=== PATIENT | female | born 1935 | race Caucasian/White ===

== ENCOUNTER → 2016-04-18 | Outpatient (CLI) | payer MEDICARE, OTHER ==
[~2016-04-18] MED LIST: ALEVE 220MG220 MG PO; ASPIRIN 81M81 MG/TA2 PO; AZO-STANDARD95 MG PO; CALCIUM 600600 M2 PO; CALCIUM1 CAP PO; CENTRUM SILVER1 TAB PO; CEPHALEXIN500 M1 PO; COLACE 100100 MG/CAP PO; CRANBERRY1 CAP PO; DITROPAN 5MG TAB5 MG PO; DITROPAN XL10 MG PO; EFFEXOR XR75 MG/CAP PO; FERROUS SU325 MG/TAB PO; FISH OIL500 MG PO; FLONASEALLERGY NS; FOLIC ACID0.4 MG PO; MACROBID 1100 MG/CAP PO; MULTI VITAMINS1 TAB PO; MULTIVITAMIN FO1 CAP PO; NASONEX SPRAY17 GM NS; NATURAL HORMONE PO; NEW ENERGY1 CAP PO; NOLVADEX 1010 MG/TAB PO; NORCO 325 MG-51 TAB PO; PLAVIX 75MG TAB75 MG PO; PRAVACHOL 20MG20 MG PO; PROTONIX 40MG T40 MG PO; TAMOXIFEN CITRA20 MG PO; TOPCARE PAIN R325 MG PO; TYLENOL PM 5001 CAP PO; TYLENOL PM EXTR1 TA1 PO; VITAMIN C500 MG PO; VITAMIN D 1001000 IU PO; VITAMIN D 400400 IU PO; ZYRTEC 10MG10 MG PO
== END ==
LOC: COL.PUL 10:38
DX: R06.09 Other forms of dyspnea (principal)

== ENCOUNTER → 2016-04-28 | Outpatient (CLI) | payer MEDICARE, OTHER | LOC: COL.PUL 12:44 | DX: J45.998 Other asthma (principal) | CPT/HCPCS: J7674 ==

== ENCOUNTER → 2016-10-02 | Outpatient (CLI) | payer MEDICARE, OTHER | LOC: MC.RAD 10:31 | DX: Z12.31 Encounter for screening mammogram for malignant neoplasm of breast (principal) ==

== ENCOUNTER 2016-11-07 08:26 | Day surgery (SDC) | payer MEDICARE, OTHER ==
[~2016-11-07] VITALS: Ht 165.1 cm; Wt 75.4 kg
[~2016-11-07 08:26] MED LIST changes: -CENTRUM SILVER1 TAB PO; -CEPHALEXIN500 M1 PO; -VITAMIN C500 MG PO; -VITAMIN D 1001000 IU PO
[2016-11-07 08:54] VITALS: BP 118/79; PULSE 95; TEMP 97.7
[2016-11-07] MEDS ORDERED: CENTRUM SILVER1 TAB PO (09:17)
[2016-11-07] MEDS ORDERED: VITAMIN D 1001000 IU PO (09:17)
[2016-11-07] MEDS ORDERED: VITAMIN C500 MG PO (09:17)
[2016-11-07] MEDS ORDERED: CEPHALEXIN500 M1 PO (09:18)
[2016-11-07 10:15] VITALS: BP 132/75; PULSE 86; TEMP 97.6
[2016-11-07 10:30] VITALS: BP 124/70; PULSE 79
[2016-11-07 10:45] VITALS: BP 130/76; PULSE 76
== END 2016-11-07 11:00 | disposition home or self-care (01) ==
LOC: SDCO 08:26
DX: D12.0 Benign neoplasm of cecum (principal); D12.3 Benign neoplasm of transverse colon; K64.0 First degree hemorrhoids; E11.9 Type 2 diabetes mellitus without complications; K21.9 Gastro-esophageal reflux disease without esophagitis; M19.90 Unspecified osteoarthritis, unspecified site; Z79.01 Long term (current) use of anticoagulants; Z96.651 Presence of right artificial knee joint; Z90.710 Acquired absence of both cervix and uterus; Z90.722 Acquired absence of ovaries, bilateral; Z85.828 Personal history of other malignant neoplasm of skin; Z85.3 Personal history of malignant neoplasm of breast; Z86.73 Personal history of transient ischemic attack (TIA), and cerebral infarction without residual deficits
CPT/HCPCS: OP; J2704; J7030

== ENCOUNTER → 2017-11-02 | Outpatient (CLI) | payer MEDICARE, OTHER ==
[~2017-11-02] MED LIST changes: +CENTRUM SILVER1 TAB PO; +CEPHALEXIN500 M1 PO; +VITAMIN C500 MG PO; +VITAMIN D 1001000 IU PO
== END ==
LOC: MC.RAD 14:00
DX: Z12.31 Encounter for screening mammogram for malignant neoplasm of breast (principal)

== ENCOUNTER → 2018-11-22 | Outpatient (CLI) | payer MEDICARE, OTHER | LOC: MC.RAD 13:39 | DX: Z12.31 Encounter for screening mammogram for malignant neoplasm of breast (principal); Z85.3 Personal history of malignant neoplasm of breast ==

== ENCOUNTER 2019-09-18 07:49 | Outpatient (CLI) | payer MEDICARE, OTHER ==
[~2019-09-18] VITALS: Ht 163.8 cm; Wt 72.9 kg
[~2019-09-18 07:49] MED LIST changes: +TOPROL XL 25MG25 MG PO; +ZESTRIL2.5 MG PO
[2019-09-18] MEDS ORDERED: EFFEXOR 3737.5 MG/TA PO (08:17)
[2019-09-18] MEDS ORDERED: ZEBETA 5MG5 MG PO (08:18)
[2019-09-18] MEDS ORDERED: CRESTOR20 MG PO (08:19)
[2019-09-18 09:08] VITALS: BP 120/72; PULSE 81; TEMP 98.1
[2019-09-18 09:41] VITALS: BP 121/66; PULSE 79
--- NOTE | 2019-09-18 09:45 | NUR ---
SEE ADRY FOR ALL MEDICATION ADMINISTRATION TIMES AND INTRA AND POST SEDATION ASSESSMENT
[2019-09-18] MEDS ORDERED: CEPHALEXIN500 M1 PO (09:59)
[2019-09-18 10:12] VITALS: BP 112/58; PULSE 87
[2019-09-18 10:15] VITALS: BP 113/52; PULSE 82
[2019-09-18 10:30] VITALS: BP 106/55; PULSE 76
--- NOTE | 2019-09-18 11:10 | NUR ---
Discharge instructions given to pt.pt verbalizes understanding.INT removed,cathether tip intact.Pt escorted out via wheelchair by this nurse.
== END 2019-09-18 11:28 | disposition home or self-care (01) ==
LOC: COL.CAR 07:49
DX: I48.0 Paroxysmal atrial fibrillation (principal); I42.9 Cardiomyopathy, unspecified; I10 Essential (primary) hypertension; E78.5 Hyperlipidemia, unspecified; R73.03 Prediabetes; Z90.710 Acquired absence of both cervix and uterus; Z90.11 Acquired absence of right breast and nipple; Z96.651 Presence of right artificial knee joint; Z79.02 Long term (current) use of antithrombotics/antiplatelets; Z85.3 Personal history of malignant neoplasm of breast; Z79.51 Long term (current) use of inhaled steroids
CPT/HCPCS: J0690; J2250; J3010

== ENCOUNTER → 2019-11-27 | Outpatient (CLI) | payer MEDICARE, OTHER ==
[~2019-11-27] MED LIST changes: +CRESTOR20 MG PO; +EFFEXOR 3737.5 MG/TA PO; +ZEBETA 5MG5 MG PO
== END ==
LOC: MC.RAD 10:30
DX: C50.911 Malignant neoplasm of unspecified site of right female breast (principal); Z98.890 Other specified postprocedural states; Z92.3 Personal history of irradiation; Z95.818 Presence of other cardiac implants and grafts

== ENCOUNTER → 2020-12-23 | Outpatient (CLI) | payer MEDICARE, OTHER | LOC: MC.RAD 11:03 | DX: Z12.31 Encounter for screening mammogram for malignant neoplasm of breast (principal); Z98.82 Breast implant status; Z90.12 Acquired absence of left breast and nipple ==

== ENCOUNTER 2021-08-02 18:12 | Emergency (ER) | payer MEDICARE ==
[~2021-08-02] VITALS: Ht 162.6 cm; Wt 72.7 kg
[2021-08-02 18:27] VITALS: TEMP 98.3
[2021-08-02 20:36] VITALS: BP 134/69; PULSE 74
== END 2021-08-02 20:21 | disposition home or self-care (01) ==
LOC: COL.ER 18:12
DX: S00.03XA Contusion of scalp, initial encounter (principal); S60.211A Contusion of right wrist, initial encounter; S50.02XA Contusion of left elbow, initial encounter; S60.511A Abrasion of right hand, initial encounter; W01.198A Fall on same level from slipping, tripping and stumbling with subsequent striking against other object, initial encounter; Y92.007 Garden or yard of unspecified non-institutional (private) residence as the place of occurrence of the external cause

== ENCOUNTER 2021-10-29 10:16 | Emergency (ER) | payer MEDICARE ==
[~2021-10-29] VITALS: Ht 162.6 cm; Wt 70.5 kg
[2021-10-29 10:18] VITALS: TEMP 98.7
[2021-10-29] MEDS ORDERED: PRAVACHOL 20MG20 MG PO (10:38)
[2021-10-29] MEDS ORDERED: PRISTIQ 50 MG T50 MG PO (10:38)
[2021-10-29] MEDS ORDERED: CENTRUM1 TA1 (10:40)
[2021-10-29] MEDS ORDERED: PHARMASSURE ZIN50 MG PO (10:40)
[2021-10-29] MEDS ORDERED: CRANBERRY250 MG (10:42)
[2021-10-29] MEDS ORDERED: CEPHALEXIN500 M1 (10:43)
[2021-10-29] MEDS ORDERED: VITAMIN D 400400 IU PO (10:43)
[2021-10-29 10:56] LABS: BASO # 0.1 K/mm3 (0.0-0.2); EOS % 0.6 % (0.0-4.0); GRAN # 4.8 K/mm3 (1.4-6.5); GRAN % 77.5 % (42.2-75.2); HEMATOCRIT 41.4 % (37.0-47.0); HEMOGLOBIN 13.5 g/dl (12.5-16.0); LYMPH # 0.6 K/mm3 (1.2-3.4); LYMPH % 9.2 % (20.0-51.0); MEAN CELL VOLUME 83 fl (80.0-100.0); MEAN CORPUSCULAR HEMOGLOBIN 27 pg (27-31); MEAN CORPUSCULAR HGB CONC 33 g/dl (33.0-37.0); MEAN PLATELET VOLUME 9.7 fl (7.4-10.4); MONO # 0.7 K/mm3 (0.1-0.6); MONO % 11.2 % (1.7-9.3); PLATELET COUNT 231 K/mm3 (130-400); REDCELL DISTRIBUTION WIDTH-CV 14.6 % (11.5-14.5)
[2021-10-29 11:13] LABS: COLLECTION METHOD CLEAN CATCH
[2021-10-29 11:14] LABS: ALBUMIN 2.9 gm/dL (3.4-4.8); BILIRUBIN,TOTAL 0.3 mg/dL (0.2-1.2); CALCIUM 8.3 mg/dL (8.4-10.2); CREATININE, serum 0.81 mg/dL (0.57-1.11); POTASSIUM 3.9 mmol/L (3.5-4.5)
[2021-10-29 11:19] LABS: TROPONIN-I 0.017 ng/mL (0.00-0.033)
[2021-10-29 11:21] LABS: SQUAMOUS EPITHELIAL None Seen /hpf (0-10); URINE BACTERIA None Seen /hpf (NONE SEEN); URINE RBC 0-2 /hpf (0-2)
[2021-10-29 11:22] LABS: PH 6.5 (5.0-8.5); URINE APPEARANCE Clear (CLEAR/HAZY); URINE COLOR Yellow (YELLOW)
[2021-10-29 11:23] LABS: URINE GLUCOSE Negative (NEGATIVE); URINE KETONE Negative (NEGATIVE); URINE NITRATE Negative (NEGATIVE); URINE PROTEIN(semi-quant) Negative (NEGATIVE); URINE UROBILINOGEN 0.2 E.U/dL (0.2-1.0)
[2021-10-29 11:24] LABS: URINE BLOOD TRACE-INTACT (NEGATIVE)
[2021-10-29 13:00] VITALS: BP 134/85; PULSE 86
== END 2021-10-29 13:00 | disposition home or self-care (01) ==
LOC: COL.ER 10:16
PROVIDERS: Physician Assistant
DX: N39.0 Urinary tract infection, site not specified (principal); Z86.73 Personal history of transient ischemic attack (TIA), and cerebral infarction without residual deficits; Z79.02 Long term (current) use of antithrombotics/antiplatelets

== ENCOUNTER 2021-11-03 14:43 | Observation (INO) | payer MEDICARE ==
[~2021-11-03] VITALS: Ht 165.1 cm; Wt 75.7 kg
[~2021-11-03 14:43] MED LIST changes: +CENTRUM1 TA1; +CEPHALEXIN500 M1; +CRANBERRY250 MG; +PHARMASSURE ZIN50 MG PO; +PRISTIQ 50 MG T50 MG PO
[2021-11-03 15:26] LABS: BASO % 0.5 % (0.0-2.0); EOS # 0.1 K/mm3 (0.0-0.7); EOS % 1.4 % (0.0-4.0); GRAN # 6.1 K/mm3 (1.4-6.5); GRAN % 79.6 % (42.2-75.2); HEMATOCRIT 45.6 % (37.0-47.0); HEMOGLOBIN 15.1 g/dl (12.5-16.0); LYMPH # 0.6 K/mm3 (1.2-3.4); LYMPH % 8.2 % (20.0-51.0); MEAN CELL VOLUME 81 fl (80.0-100.0); MEAN CORPUSCULAR HEMOGLOBIN 27 pg (27-31); MEAN CORPUSCULAR HGB CONC 33 g/dl (33.0-37.0); MEAN PLATELET VOLUME 9.3 fl (7.4-10.4); MONO # 0.8 K/mm3 (0.1-0.6); MONO % 9.9 % (1.7-9.3); PLATELET COUNT 301 K/mm3 (130-400); RED BLOOD COUNT 5.66 M/mm3 (4.10-5.30); REDCELL DISTRIBUTION WIDTH-CV 14.5 % (11.5-14.5)
[2021-11-03 15:35] LABS: ALANINE AMINOTRANSFERASE 55 U/L (0-55); ALKALINE PHOSPHATASE 251 U/L (40-150); ANION GAP 12 mmol/L (7-16); AST,SGOT 68 U/L (5-34); BILIRUBIN,TOTAL 0.6 mg/dL (0.2-1.2); BLOOD UREA NITROGEN 10 mg/dL (10-20); CALCIUM 8.7 mg/dL (8.4-10.2); CARBON DIOXIDE 22 mmol/L (23-31); CHLORIDE 98 mmol/L (98-107); CREATININE, serum 0.75 mg/dL (0.57-1.11); GLUCOSE 190 mg/dL (70-99); POTASSIUM 3.4 mmol/L (3.5-4.5); SODIUM 132 mmol/L (136-145); TOTAL PROTEIN 6.6 gm/dL (6.2-8.1)
[2021-11-03 15:41] LABS: TROPONIN-I < 0.010 ng/mL (0.00-0.033)
[2021-11-03 16:49] LABS: COLLECTION METHOD CLEAN CATCH
[2021-11-03 16:58] LABS: SQUAMOUS EPITHELIAL None Seen /hpf (0-10); URINE BACTERIA None Seen /hpf (NONE SEEN); URINE RBC 0-2 /hpf (0-2)
[2021-11-03 16:59] LABS: URINE APPEARANCE Clear (CLEAR/HAZY); URINE BLOOD TRACE-LYSED (NEGATIVE); URINE COLOR Yellow (YELLOW); URINE GLUCOSE Negative (NEGATIVE); URINE KETONE Negative (NEGATIVE); URINE NITRATE Negative (NEGATIVE); URINE PROTEIN(semi-quant) Negative (NEGATIVE); URINE UROBILINOGEN 0.2 E.U/dL (0.2-1.0)
[2021-11-03] MEDS ORDERED: ZOFRAN 4MG T4 MG/TAB PO (18:59)
[2021-11-03] MEDS ORDERED: PROTONIX 40MG T40 MG PO (18:59)
[2021-11-03] MEDS ORDERED: PROTONIX20 MG PO (19:34)
--- NOTE | 2021-11-03 20:07 | NUR ---
PT ARRIVES VIA CART FROM ED.
[2021-11-03 20:15] VITALS: BP 129/61; PULSE 81; TEMP 98.2
--- NOTE | 2021-11-03 20:30 | NUR ---
ADMISSION QUESTIONS COMPLETED. PT HAS IVF WITH POTASSIUM REPLACEMENT INFUSING TO LFA WITHOUT REDNESS OR SWELLING. IS ALERT AND ORIENTED X4, [place]. PT ON FALL PRECAUTIONS D/T FALL AT HOME. PT REPORTS URGENCY AND SLIGHT INCONTINENCE WHEN GETTING UP, PROVIDED PULL UP AT THIS TIME.
[2021-11-04] VITALS (9 sets, daily range): BP systolic 123–146; BP diastolic 54–71; PULSE 79–93; TEMP 97.6–99.1
--- NOTE | 2021-11-04 02:00 | NUR ---
POTASSIUM REPLACEMENT COMPLETE. IV ZOSYN INFUSING TO LFA WITHOUT PROBLEM. HAS BEEN UP TO BSC WITH ONE ASSIST AND WALKER. IS NPO. DENIES NEED FOR PAIN MEDS, NO NAUSEA AT THIS TIME.
[2021-11-04 06:12] LABS: BASO # 0.1 K/mm3 (0.0-0.2); BASO % 0.8 % (0.0-2.0); EOS # 0.3 K/mm3 (0.0-0.7); EOS % 4.2 % (0.0-4.0); GRAN # 4.5 K/mm3 (1.4-6.5); HEMATOCRIT 39.5 % (37.0-47.0); HEMOGLOBIN 13.2 g/dl (12.5-16.0); LYMPH # 0.8 K/mm3 (1.2-3.4); LYMPH % 11.9 % (20.0-51.0); MEAN CELL VOLUME 80 fl (80.0-100.0); MEAN CORPUSCULAR HEMOGLOBIN 27 pg (27-31); MEAN CORPUSCULAR HGB CONC 33 g/dl (33.0-37.0); MEAN PLATELET VOLUME 9.7 fl (7.4-10.4); MONO # 0.8 K/mm3 (0.1-0.6); MONO % 12.5 % (1.7-9.3); PLATELET COUNT 271 K/mm3 (130-400); RED BLOOD COUNT 4.94 M/mm3 (4.10-5.30); REDCELL DISTRIBUTION WIDTH-CV 14.4 % (11.5-14.5)
[2021-11-04 06:28] LABS: CALCIUM 8.1 mg/dL (8.4-10.2); CREATININE, serum 0.67 mg/dL (0.57-1.11)
--- NOTE | 2021-11-04 09:15 | NUR ---
Pt has worked with PT and is currently sitting up in the chair. Pts daughter, Mohit, is in the room with her. Dr Quach in to see pt, discussed US results and plan of care for the day. Pt advanced to clear liquid diet, tray has been ordered for her
--- NOTE | 2021-11-04 09:44 | NUR ---
Initial visit; Patient states she is having abdominal discomfort and is here for a diagnosis. came in when Manager Community was there and talked with Dora and her daughter about her symptoms. offered God's blessings to Dora and her
--- NOTE | 2021-11-04 10:48 | NUR ---
Pt doing well, she did tolerate the clear liquids without any difficulty. She is not having any complaints of pain. Morning medications given. Ambulated pt to the restroom and then back to bed.
--- NOTE | 2021-11-04 13:22 | NUR ---
Crossbow Maker met with patient and patient's daughter, Gale (ph#[phone]) to discuss discharge planning. Patient lives alone in [place] but advised Gale has been staying with her for the last week or so. Patient sees Dr. Zaidi for primary care and obtains her medications from [facility] pharmacy with no difficulties. Patient has a cane, but has been using a walker this last week. Patient is normally independent with ADLS and is still driving, however has had more difficulty this last week. Patient has DPOA-HC in EMR which designates her daughter, Gale. Patient states she plans to go home unless there are other recommendations from PT/OT. SW followed up with patient following PT/OT eval. SW advised PT/OT recommend considering home health vs post acute rehab. Patient would like to discuss this with her daughter. SW attempted to contact patient's daughter, Gale and left a message. Discharge Plan: Home Health vs Post Acute Rehab
--- NOTE | 2021-11-04 14:59 | NUR ---
Daycare Provider met with patient and patient's daughter, Gale to discuss discharge planning. DOMINIQUE and RN-TAWANNA provided MAIER form to patient who verbalized understanding and provided signature. DOMINIQUE placed form in chart and provided copy to patient. DOMINIQUE reviewed PT/OT recommendations and also explained that SNF would be private pay. Gale advised that patient has funds to private pay, however they would like to see how patient does overnight before deciding on HH vs SNF. DOMINIQUE provided Medicare.gov list of HH agencies. Gale advised they have also been in communication with [facility] for private duty services. Discharge Plan: HH vs private pay SNF
--- NOTE | 2021-11-04 15:12 | NUR ---
Assisted pt to the restroom. She was not steady on her feet, upper body moving quicker than lower extremities. Had to give a lot of instruction ambulating back to her bed. Pt speech is also slower than normal. Notified Dr Johnson. VSS 127/58, pulse 76 and accucheck 126. Daughter is present in the room
--- NOTE | 2021-11-04 16:13 | NUR ---
Pt off the floor for CT
--- NOTE | 2021-11-04 20:00 | NUR ---
PT A&O RESTING IN BED. MEDS GIVEN AND ASSESSMENT COMPLETE. BRUISING TO LT FOOT FROM FALL. VS STABLE AND TELE IN PLACE FOR AFIB. PT DENIES PN BUT COMPLAINS OF INDIGESTION. BS OF 99 NOT REQUIRING INSULIN PER SS. PT UP TO BATHROOM 1 ASSIST W WALKER AND WAS UNSTEADY. INT TO LEFT FOREARM PATENT. 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 SCDS TO BLE. NO OTHER NEEDS AT THIS TIME. CALL LIGHTWITHIN REACH.
[2021-11-05 03:42] VITALS: BP 157/76; PULSE 77; TEMP 97.9
[2021-11-05 07:34] VITALS: BP 142/64; PULSE 79; TEMP 98.4
--- NOTE | 2021-11-05 08:07 | NUR ---
Pt assessment complete. Pt is sitting up in bed eating breakfast, she is A/O x4. Neuro checks WNL. Pt reports dull ache to upper abdomen and belching after eating and drinking. Denies any N/V. Reports she is passing gas. No SOB. SCD's on bilaterally. No further needs at this time. Call light within reach.
[2021-11-05 12:30] VITALS: BP 124/70; PULSE 70; TEMP 98.1
--- NOTE | 2021-11-05 15:18 | NUR ---
Sw met with pt and daughter. Daughter requested [facility]. SW called [facility] for referral and waiting almond paste mixer back from them. DOMINIQUE went ahead and faxed over paperwork to [phone].
[2021-11-05 15:56] VITALS: BP 150/71; PULSE 84; TEMP 98.2
--- NOTE | 2021-11-05 18:28 | NUR ---
Pt had an uneventful day. She had no episodes of weakness or slurred speech. Plan to have EGD tomorrow, NPO at midnight. Resting in bed with SCD's in place. No needs at this time. Call light within reach.
[2021-11-05 19:37] VITALS: BP 143/79; PULSE 88; TEMP 98.6
--- NOTE | 2021-11-05 19:44 | NUR ---
Patient assessed at this time. Denies having pain and discomfort. Peripheral INT to left forearm flushed. Assisted to bathroom with one assist, use of gait belt, and walker. Did lose balance and needed assistance pulling up and down depend. Denies dizziness. Patient aware of plan for EGD tomorrow morning. Consent is signed and on the chart. Aware that she will be NPO after midnight, including water. Voices no questions, needs, or concerns at this time. In bed with call light within reach. High fall risk precautions in place. Bed alarm on.
[2021-11-05 23:07] VITALS: BP 128/69; PULSE 92; TEMP 97.5
[2021-11-06] VITALS (7 sets, daily range): BP systolic 117–153; BP diastolic 65–89; PULSE 66–83; TEMP 97.3–97.8
[2021-11-06 06:08] LABS: BASO % 0.5 % (0.0-2.0); EOS # 0.2 K/mm3 (0.0-0.7); EOS % 3.3 % (0.0-4.0); GRAN # 5.2 K/mm3 (1.4-6.5); GRAN % 71.5 % (42.2-75.2); HEMATOCRIT 43.2 % (37.0-47.0); LYMPH % 13.2 % (20.0-51.0); MEAN CELL VOLUME 82 fl (80.0-100.0); MEAN CORPUSCULAR HEMOGLOBIN 27 pg (27-31); MEAN CORPUSCULAR HGB CONC 32 g/dl (33.0-37.0); MEAN PLATELET VOLUME 9.8 fl (7.4-10.4); MONO # 0.8 K/mm3 (0.1-0.6); MONO % 11.1 % (1.7-9.3); PLATELET COUNT 275 K/mm3 (130-400); RED BLOOD COUNT 5.27 M/mm3 (4.10-5.30); REDCELL DISTRIBUTION WIDTH-CV 14.6 % (11.5-14.5)
--- NOTE | 2021-11-06 06:31 | NUR ---
Patient has been NPO since midnight for EGD today. Voices no questions, needs, or concerns at this time. In bed with call light within reach. Bed alarm on.
[2021-11-06 06:54] LABS: ALBUMIN 2.5 gm/dL (3.4-4.8); CALCIUM 8.3 mg/dL (8.4-10.2); CREATININE, serum 0.69 mg/dL (0.57-1.11); PHOSPHOROUS 2.6 mg/dL (2.3-4.7); POTASSIUM 3.8 mmol/L (3.5-4.5)
--- NOTE | 2021-11-06 07:49 | NUR ---
Patient resting in bed this am. Alert and oriented. She has been NPO. Denies nausea. Ivf to Lfa per orders pre egd. Blood sugar stable this am at 124. Patient wedding band taped, she did not want to remove prior to procedue. Patient to Egd to [facility]. Will await her return.
--- NOTE | 2021-11-06 09:31 | NUR ---
Patient has returned from EGD her family at bedside. She is awake and alert, she has been up to the bathroom and voided. New brief provided for incontinence. Iv To Int. She is tolerating clear liquids. No nausea. Gag reflex was present. Vitals stable on room air. Am medications given. Will monitor.
--- NOTE | 2021-11-06 10:12 | NUR ---
ROUNDED. PLAN OF CARE REVIEWED. BLAND DIET ORDERED.
[2021-11-06] MEDS ORDERED: PROTONIX 40MG T40 MG PO (10:25)
--- NOTE | 2021-11-06 11:51 | NUR ---
DOMINIQUE informed by the physician that patient would discharge on this day and wanted to know about follow up for HH services. DOMINIQUE provided that daughter Mohit [phone] selected [facility] as agency choice. SW called [facility] to assess of agency had reviewed patient information to assist with services. SW awaiting call back from agency. SW called daughter to see if agency called her to provide information. Daughter unable to reach at this time. Patient's son in room and he provided that Mohit would be back later today. DOMINIQUE will follow with Mohit when she arrives back to facility to obtain further information in regards to HH agency. SW will continue to follow.
--- NOTE | 2021-11-06 15:06 | NUR ---
Patient ready for discharge. Order obtained from . She tolerated diet. her family here to take her home. They discussed discharge with social work. We reviewed new script for protonix & home med list. Follow up appt to be made tmrw by patient family. Patient and family understanding of discharge. Patient wheeled out with all belongings. Her daughter taking her home.
--- NOTE | 2021-11-07 16:26 | NUR ---
DOMINIQUE contacted by Chuy at [facility] that they did not get the patient's orders. Discharge orders faxed to [facility].
== END 2021-11-06 15:10 | disposition home health service (06) ==
LOC: COL.ER 14:43 → SURG 17:57
PROVIDERS: Emergency Medicine; Family Medicine; Internal Medicine; Nurse Practitioner Family; ADMIT Internal Medicine
DX: R10.13 Epigastric pain (principal); K21.9 Gastro-esophageal reflux disease without esophagitis; K44.9 Diaphragmatic hernia without obstruction or gangrene; E87.1 Hypo-osmolality and hyponatremia; E87.6 Hypokalemia; E11.649 Type 2 diabetes mellitus with hypoglycemia without coma; I48.0 Paroxysmal atrial fibrillation; I25.10 Atherosclerotic heart disease of native coronary artery without angina pectoris; R53.1 Weakness; R53.81 Other malaise; E87.2 Acidosis; I50.20 Unspecified systolic (congestive) heart failure; R11.10 Vomiting, unspecified; Z66 Do not resuscitate; Z86.73 Personal history of transient ischemic attack (TIA), and cerebral infarction without residual deficits; Z85.828 Personal history of other malignant neoplasm of skin; Z85.3 Personal history of malignant neoplasm of breast
CPT/HCPCS: C9113; G0378; J2405; J2543; J2704; J3480; J7030; J7120; Q9967

== ENCOUNTER → 2021-11-15 | Outpatient (CLI) | payer MEDICARE ==
[~2021-11-15] MED LIST changes: +PROTONIX20 MG PO; +ZOFRAN 4MG T4 MG/TAB PO
== END ==
LOC: COL.RAD 07:46
DX: R11.0 Nausea (principal); R63.0 Anorexia
CPT/HCPCS: A9541

== ENCOUNTER 2023-01-01 15:52 | Emergency (ER) | payer MEDICARE ==
[~2023-01-01] VITALS: Ht 162.6 cm; Wt 69.1 kg
[2023-01-01 20:12] VITALS: BP 117/79; PULSE 87; TEMP 98.1
== END 2023-01-01 20:05 | disposition home or self-care (01) ==
LOC: COL.ER 15:52
DX: S51.812A Laceration without foreign body of left forearm, initial encounter (principal); S00.03XA Contusion of scalp, initial encounter; Z86.73 Personal history of transient ischemic attack (TIA), and cerebral infarction without residual deficits; Z23 Encounter for immunization; Z79.02 Long term (current) use of antithrombotics/antiplatelets; W10.8XXA Fall (on) (from) other stairs and steps, initial encounter; W22.8XXA Striking against or struck by other objects, initial encounter